=== PATIENT | female | born 1945 | race Caucasian/White ===

== ENCOUNTER 2024-04-06 10:56 | Outpatient (AMB) | payer MEDICARE, OTHER, SELFPAY ==
[2024-04-06 11:09] VITALS: BP 130/72; PULSE 55; O2SAT 99; BMI 25.8
--- NOTE | 2024-04-06 11:09 | A.OFFVIS_ITS ---
Vital Signs 04/06/24 11:09 Height 5 ft 2.5 in Weight 143 lb 8.335 oz BMI 25.8 BP 130/72 Blood Pressure Location Lt brachial Position Sitting Pulse 55 Pulse Source Pulse Oximeter Pulse Oximetry (%) 99 Oxygen Delivery Method Room Air Intake Visit Reasons: RA Intake Note: Patient presents for follow up on RA today, she is requesting Methotrexate refill. Allergies environmental allergies Allergy (Mild, Verified 04/06/24 11:19) Hives Penicillins Adverse Reaction (Unknown, Unverified 04/06/24 11:19) unknown HPI HPI RA: Details: She had cataract surgery with complication in right eye with inflammation remaining being treated with eye drops. No recent infection. Used to work as photographic laboratory technician. Wakes up with minimal stiffness. In the last couple of days she has been typing a lot. Denies new joint swelling or pain. She is walking 2-3 miles daily. She has intermittent left lateral hip pain. Stretches from [employer] hip strengthening program were 2 easy for patient. She does her own stretches at home. Review of Systems Const All systems reviewed & are unremarkable except as noted in HPI and below Physical Exam Vital Signs: Last Vital Signs Pulse 55 04/06/24 11:09 BP 130/72 04/06/24 11:09 Pulse Ox 99 04/06/24 11:09 Oxygen Delivery Method Room Air 04/06/24 11:09 BMI result Body Mass Index 25.8 Const Other: General: Comfortable CVS: RRR Respiratory: clear to auscultation bilaterally. Good respiratory effort Skin: No lesions seen MSK: Synovitis present right 2nd to 5th MCP and left 1st MCP. Tenderness palpated MCPs. No PIP tenderness or wrist tenderness. Good range of motion of upper extremity and lower extremity. Left trochanteric bursa tenderness found. Assessment & Plan Assessment & Plan (1) Rheumatoid arthritis: Comment: She has synovitis on exam MCPs bilateral due to recent increase activity with typing more than usual. I will treat current symptoms with a short course of prednisone. Patient will monitor swelling and call office if she has recurrence. I will then increase methotrexate to 17.5 mg once weekly Code(s): M06.9 - Rheumatoid arthritis, unspecified Category: Medical Qualifiers: Rheumatoid arthritis location: multiple sites Rheumatoid factor presence: unspecified presence Qualified Code(s): M06.9 - Rheumatoid arthritis, unspecified Plan: Labs for disease and drug monitoring ordered After lab results are back, I will need to send prescription for methotrexate 15 mg once weekly Continue leucovorin 15 mg the day after you take methotrexate Return to clinic in 3 months Immunizations reviewed. She is up-to-date with flu shot, COVID-19 booster, pneumonia vaccines and Shingrix. She will get RSV vaccine [facility]ing [facility] (2) Other care home (current) drug therapy: Code(s): Z79.899 - Other care home (current) drug therapy Category: Medical Plan: See above (3) Trochanteric bursitis, left hip: Comment: Intermittent. In the past she has had 6 months relief with cortisone injection, which was done about a year ago. She has been doing stretches on her own at home. She agreed to PT. Code(s): M70.62 - Trochanteric bursitis, left hip Category: Medical Plan: PT referral given to patient. She would like to go to PT local to her home She will call office if left hip pain persists for left trochanteric bursa cortisone injection Return to clinic 3 months Orders: Orders C Reactive Protein Today M06.9 - Rheumatoid arthritis, unspecified, Z79.899 - Other care home (current) drug therapy Aspartate Amino Transferase Today Z79.60 - [facility] (current) use of unspecified immunomodulators and immunosuppressants Complete Blood Count Auto Diff Today Z79.60 - [facility] (current) use of unspecified immunomodulators and immunosuppressants Hepatitis B,C Profile Today M06.9 - Rheumatoid arthritis, unspecified, Z79.899 - Other care home (current) drug therapy T Spot TB Today M06.9 - Rheumatoid arthritis, unspecified, Z79.899 - Other ad terminal makeup operator (current) drug therapy Rheumatoid Factor Today M06.9 - Rheumatoid arthritis, unspecified, Z79.899 - Other ad terminal makeup operator (current) drug therapy Erythrocyte Sedimentation Rate Today M06.9 - Rheumatoid arthritis, unspecified, Z79.899 - Other ad terminal makeup operator (current) drug therapy Alanine Aminotransferase Today Z79.60 - watermelon harvesting supervisor (current) use of unspecified immunomodulators and immunosuppressants Creatinine Today Z79.60 - [facility] (current) use of unspecified immunomodulators and immunosuppressants Cyclic Citrullinated Peptide Today M06.9 - Rheumatoid arthritis, unspecified, Z79.899 - Other ad terminal makeup operator (current) drug therapy PT Evaluation and Treatment Today Z79.899 - Other care home (current) drug therapy Medications: New prednisone Take 2 tablets daily 3 days and 1 tablet daily 3 days then stop 5 mg PO DIRECTED 9 tabs 0RF Coding Level of Care Code Est Pt Level 4 (42384) Complex EM visit Add On G2211 Diagnoses Rheumatoid arthritis involving multiple sites, unspecified whether rheumatoid factor present M06.9 Rheumatoid arthritis location: multiple sites Rheumatoid factor presence: unspecified presence Other care home (current) drug therapy Z79.899 Trochanteric bursitis, left hip M70.62
== END 2024-04-06 12:08 | disposition home or self-care (01) ==
PROVIDERS: PCP Internal Medicine; Visit Provider Internal Medicine Rheumatology
DX: M06.9 Rheumatoid arthritis, unspecified (principal); Z79.899 Other long term (current) drug therapy; M70.62 Trochanteric bursitis, left hip
CPT/HCPCS: 99214; G2211

== ENCOUNTER 2024-04-06 10:56 | Outpatient (REF) | payer MEDICARE, OTHER, SELFPAY ==
[2024-04-06 13:14] LABS: MANUAL DIFF FLAG NO
[2024-04-06 13:44] LABS: Basophils Percent Auto 0.8 % (0-2); Eosinophils Absolute Auto 0.1 X10*3/uL (0.0-0.4); Eosinophils Percent Auto 1.4 % (0-4); Hematocrit 38.3 % (37.0-47.0); Imm Gran Abs Auto 0.01 X10*3/uL (0.00-0.03); Imm Gran Pct Auto 0.2 % (0.0-0.4); Lymphocytes Absolute Auto 1.3 X10*3/uL (1.2-4.9); Lymphocytes Percent Auto 25.3 % (20-40); Mean Corpuscular HGB Conc 33.9 g/dl (31.0-35.0); Mean Corpuscular Hemoglobin 31.6 pg (27.0-33.0); Mean Platelet Volume 9.5 fL (9.4-12.3); Monocytes Absolute Auto 0.5 X10*3/uL (0.1-1.2); Monocytes Percent Auto 8.9 % (2-11); Neutrophils Absolute Auto 3.3 x10*3/uL (2.0-8.3); Neutrophils Percent Auto 63.4 % (45-73); Platelet Count 253 X10*3/uL (160-400); Red Blood Count 4.12 X10*6/uL (4.20-5.50); Red Cell Distribution Width 12.7 % (11.0-16.0); White Blood Count 5.2 X10*3/uL (4.8-10.8)
[2024-04-06 14:05] LABS: Rheumatoid Factor 77.6 IU/mL (<15.0)
[2024-04-06 14:12] LABS: Alanine Aminotransferase 17 U/L (0-31); Aspartate Amino Transferase 27 U/L (5-31); C Reactive Protein 0.11 mg/dL (< or = 0.50); Estimated Glomerular Filt Rate > 60
[2024-04-06 14:25] LABS: Erythrocyte Sedimentation Rate 13 MM/HR (0-20)
[2024-04-07 08:17] LABS: HBS Num1 2.13 mIU/mL (0-7.99); HBsAGNum1 0.36 S/CO (0.00-0.99); Hepatitis B Core Antibody Nonreactive (Nonreactive); Hepatitis B Surface Antigen Negative (Negative); ~Hepatitis B Surface Antibody NONREACTIVE (Nonreactive); ~Hepatitis C Antibody Nonreactive (Nonreactive)
[2024-04-09 05:44] LABS: TS Negative Control Passed; TS Panel A 0; TS Panel B 3; TS Positive Control Passed; TSpotTB Negative (Negative)
[2024-04-09 14:38] LABS: Cyclic Citrullinated Peptide >250 UNITS
== END 2024-04-06 10:57 | disposition home or self-care (01) ==
LOC: HO.LAB 10:56
PROVIDERS: PCP Internal Medicine; Visit Provider Internal Medicine Rheumatology
DX: M06.9 Rheumatoid arthritis, unspecified (principal); Z79.899 Other long term (current) drug therapy; Z79.60 Long term (current) use of unspecified immunomodulators and immunosuppressants; M70.62 Trochanteric bursitis, left hip
CPT/HCPCS: 36415; 82565; 84450; 84460; 85025; 85652; 86140; 86200; 86431; 86481; 86704; 86706; 86803; 87340; 99212

== ENCOUNTER 2024-04-27 08:47 | Outpatient (AMB) | payer MEDICARE, OTHER, SELFPAY ==
[2024-04-27 08:50] VITALS: BP 134/68; BMI 26.9
--- NOTE | 2024-04-27 08:50 | MHC.OFFVIS ---
Vital Signs 04/27/24 08:50 Height 5 ft 2.5 in Weight 149 lb 4.047 oz BMI 26.9 BP 134/68 Blood Pressure Location Rt brachial Position Sitting Intake Visit Reasons: trochanteric bursa cortisone injection Allergies environmental allergies Allergy (Mild, Verified 04/27/24 08:53) Hives Penicillins Adverse Reaction (Unknown, Verified 04/27/24 08:53) unknown HPI HPI trochanteric bursa cortisone injection: Details: She has constant pain left trochanteric bursa. Nine days ago she started experiencing lower back pain. She has been applying heat without benefit. She is also taking Tylenol without benefit. Review of Systems Const All systems reviewed & are unremarkable except as noted in HPI and below Physical Exam Vital Signs: Last Vital Signs BP 134/68 04/27/24 08:50 BMI result Body Mass Index 26.9 Const Other: General: Comfortable Skin: No lesions seen MSK: Left trochanteric bursa tenderness found. Good range of motion of hip. Tender lower back lateral to lumbar paraspinal muscles on both sides. She is able to flex lumbar spine but it is not full. Office Procedures AMB Joint Injection/Aspiration Joint Injection/Aspiration Details: Right trochanteric bursa Prep: site was prepped using aseptic technique Injected: 40 mg of, Kenalog, with 1 mL of and 1% plain lidocaine Procedure: The patient tolerated the procedure well. Postprocedure protocol was discussed with patient. Coding 41101 - Large joint Procedure code (CPT) selection complete Office Meds lidocaine (PF) 10 mg/mL (1 %) injection solution Performing Provider: Adria Kelly MD Performing Location: [facility] Administered by: Adria Kelly MD on 04/27/24 15:28 Dose Route Admin Location Dispensed Lot Number Expiration Date [facility] [employer] 10 mg Infiltration 2 mL [id number] [facility] Kenalog 40 mg/mL suspension for injection Performing Provider: Adria Kelly MD Performing Location: [facility] Administered by: Adria Kelly MD on 04/27/24 15:28 Dose Route Admin Location Dispensed Lot Number Expiration Date [facility] [employer] 40 mg intrabursal 1 mL AP 2 [id number] [employer] Assessment & Plan Assessment & Plan (1) Trochanteric bursitis, left hip: Comment: Constant pain. Code(s): M70.62 - Trochanteric bursitis, left hip Category: Medical Plan: Left trochanteric bursa cortisone injection given today (2) Low back pain: Comment: Due to myofascial strain. We discussed conservative management. Code(s): M54.50 - Low back pain, unspecified Category: Medical Qualifiers: Chronicity: acute Back pain laterality: bilateral Sciatica presence: without sciatica Qualified Code(s): M54.50 - Low back pain, unspecified Plan: Start ibuprofen 600 mg every 8 hours as needed. She can also take Tylenol 1000 mg with ibuprofen Start muscle relaxer cyclobenzaprine 5 mg q.h.s. Apply heat to back as needed Return to clinic in 3 months Orders: Orders AMB Joint Injection/Aspiration Today M70.62 - Trochanteric bursitis, left hip Medications: New Kenalog (triamcinolone acetonide) 40 mg intrabursal ONCE 1 mL 0RF NS M70.62 - Trochanteric bursitis, left hip cyclobenzaprine 5 mg PO BEDTIME PRN 30 tabs 0RF muscle spasm lidocaine (PF) 10 mg Infiltration ONCE 1 mL 0RF M70.62 - Trochanteric bursitis, left hip Coding Level of Care Code Est Pt Level 4 (47593) Complex EM visit Add On G2211 Diagnoses Trochanteric bursitis, left hip M70.62 Acute bilateral low back pain without sciatica M54.50 Chronicity: acute Back pain laterality: bilateral Sciatica presence: without sciatica CPT Codes Coding - 12371 Large joint: 41095 - Large joint ([id number])
== END 2024-04-27 09:18 | disposition home or self-care (01) ==
PROVIDERS: PCP Internal Medicine; Visit Provider Internal Medicine Rheumatology
DX: M70.62 Trochanteric bursitis, left hip (principal); M54.50 Low back pain, unspecified
CPT/HCPCS: 20610; 99214

== ENCOUNTER → 2024-04-27 08:47 | Outpatient (BNVA) | payer MEDICARE, OTHER, SELFPAY | PROVIDERS: PCP Internal Medicine; Visit Provider Internal Medicine Rheumatology | DX: M70.62 Trochanteric bursitis, left hip (principal); M54.50 Low back pain, unspecified | CPT/HCPCS: 20610; 99212; J2003; J3300 ==

== ENCOUNTER 2024-06-30 08:50 | Outpatient (REF) | payer MEDICARE, OTHER, SELFPAY ==
--- OUTSIDE RECORDS SUMMARY | 2024-06-30 11:06 | XMS_ITS | Encounter Summary ---
Author Organization [facility] Address [address] [place] [address] Phone Care Team Providers Care Road Packer Operator Name Role Phone Leticia Alvarenga MD Unavailable [phone] Sherita Box MD Unavailable [phone] Rehana Meza MD Primary Care Provider + Sommer David MD Primary Care Provi [email or web address] Encounter Details Date Type Department Care Team (Latest Contact Info) Description 02/24/2020 Transcribe Orders Virtual Department [address] [place] [phone] Mann Stanford MD [address] [place] [address] [phone] [email or web address] Pre-operative laboratory examination [...] 11:40 AM EST) Specimen Source NASOPHARYNGEAL SWAB (RUG SIZER) [facility] COVID-19 Comment [id number] [facility] COVID Testing Status Sent to [facility] Micro Lab [facility] Other 02/27/2020 11:4 0 AM EST 02/27/2020 2:55 PM EST Mann Stanford MD BODY FLUIDS AND SARAH WU ORDERABLES [facility] [address] [place] [address] documented in this encounter Visit Diagnoses Diagnosis Pre-operative laboratory examination- Primary Pre-procedural laboratory examination documented in this encounter Care Teams Road Packer Operator Relationship Specialty Start Date End Date Rehana Meza MD [address] [place] [phone] [email or web address] PCP - General Family Medicine 10/27/17 05/22/21 Sommer David MD [address] [place] [address] [phone] [email or web address] PCP - General Internal Medicine 05/23/21 Leticia Alvarenga MD [address] [place] [address] Historical LMR Provider 02/03/17 2 Sherita Box MD [address] [place] [phone] [email or web address] Historical LMR Provider 02/03/17 04/28/21 documented as of this encounter Additional Source Comments The information contained in this document represents components of the legal health record. It is not the complete legal health record.[facility]
[2024-06-30 18:17] LABS: MANUAL DIFF FLAG NO
[2024-06-30 18:25] LABS: Basophils Absolute Auto 0.1 X10*3/uL (0.0-0.2); Basophils Percent Auto 1.4 % (0-2); Eosinophils Absolute Auto 0.1 X10*3/uL (0.0-0.4); Eosinophils Percent Auto 2.2 % (0-4); Hematocrit 39.8 % (37.0-47.0); Hemoglobin 13.3 g/dl (12.0-16.0); Imm Gran Abs Auto 0.01 X10*3/uL (0.00-0.03); Imm Gran Pct Auto 0.2 % (0.0-0.4); Lymphocytes Absolute Auto 1.3 X10*3/uL (1.2-4.9); Lymphocytes Percent Auto 30.4 % (20-40); Mean Corpuscular HGB Conc 33.4 g/dl (31.0-35.0); Mean Corpuscular Hemoglobin 31.1 pg (27.0-33.0); Mean Corpuscular Volume 93.2 fL (80.0-98.0); Mean Platelet Volume 9.9 fL (9.4-12.3); Monocytes Absolute Auto 0.6 X10*3/uL (0.1-1.2); Neutrophils Absolute Auto 2.2 x10*3/uL (2.0-8.3); Neutrophils Percent Auto 51.8 % (45-73); Platelet Count 248 X10*3/uL (160-400); Red Blood Count 4.27 X10*6/uL (4.20-5.50); Red Cell Distribution Width 13.2 % (11.0-16.0); White Blood Count 4.2 X10*3/uL (4.8-10.8)
[2024-06-30 18:39] LABS: Alanine Aminotransferase 17 U/L (0-31); Aspartate Amino Transferase 30 U/L (5-31); C Reactive Protein 0.18 mg/dL (< or = 0.50); Estimated Glomerular Filt Rate > 60
[2024-06-30 19:08] LABS: Erythrocyte Sedimentation Rate 13 MM/HR (0-20)
== END 2024-06-30 08:51 | disposition home or self-care (01) ==
LOC: HO.HKASLDS 08:50
PROVIDERS: Visit Provider Internal Medicine Rheumatology
DX: M06.9 Rheumatoid arthritis, unspecified (principal); M70.62 Trochanteric bursitis, left hip; Z79.899 Other long term (current) drug therapy; Z79.60 Long term (current) use of unspecified immunomodulators and immunosuppressants
CPT/HCPCS: 36415; 82565; 84450; 84460; 85025; 85652; 86140; 99212

== ENCOUNTER 2024-06-30 08:50 | Outpatient (AMB) | payer MEDICARE, OTHER, SELFPAY ==
--- NOTE | 2024-06-30 08:52 | MHC.OFFVIS ---
Vital Signs 06/30/24 08:56 Height 5 ft 2.5 in Weight 145 lb 8.081 oz BMI 26.2 BP 110/70 Blood Pressure Location Lt brachial Position Sitting Pulse 68 Pulse Source Pulse Oximeter Pulse Oximetry (%) 100 Oxygen Delivery Method Room Air Intake Visit Reasons: Follow Up 3mo Intake Note: Patient presents for follow up on RA today, Allergies environmental allergies Allergy (Mild, Verified 06/30/24 08:52) Hives Penicillins Adverse Reaction (Unknown, Verified 06/30/24 08:52) unknown HPI HPI Follow Up 3mo: Details: Wakes up with toes that are hot, swollen and painful. She can't wait to walk on cold floor. New nodule on right second PIP. MS none. She did not find benefit on prednisone course. Review of Systems Const All systems reviewed & are unremarkable except as noted in HPI and below Physical Exam Vital Signs: Last Vital Signs Pulse 68 06/30/24 08:56 BP 110/70 06/30/24 08:56 Pulse Ox 100 06/30/24 08:56 Oxygen Delivery Method Room Air 06/30/24 08:56 BMI result Body Mass Index 26.2 Const Other: General: Comfortable CVS: RRR Respiratory: clear to auscultation bilaterally. Good respiratory effort Skin: No lesions seen MSK: No MCP, PIP tenderness or wrist tenderness or synovitis. Normal range of motion of upper extremity and lower extremity. Left trochanteric bursa tenderness found. Tender bilateral ankles, tender MTPs bilateral with synovitis present in bilateral MTPs. Tender right 4th and 5th toes. Nodule present radial side of right 3rd DIPJ and ulnar side of 2nd PIP. Assessment & Plan Assessment & Plan (1) Rheumatoid arthritis: Comment: Rheumatoid arthritis is not controlled on current regimen. She had improvement with last prednisone course in resolving synovitis in hands. She has developed new nodule right 2nd PIP, which I am concerned for development of rheumatoid nodule with synovitis of bilateral MTPs with patient noting that her toes are swollen in the morning. We discussed next steps in therapy. Code(s): M06.9 - Rheumatoid arthritis, unspecified Category: Medical Qualifiers: Rheumatoid arthritis location: multiple sites Rheumatoid factor presence: unspecified presence Qualified Code(s): M06.9 - Rheumatoid arthritis, unspecified Plan: Labs for disease and drug monitoring ordered Prednisone course prescribed Increase methotrexate 20 mg once weekly Continue leucovorin 15 mg the day after you take methotrexate. I will consider reducing leucovorin dose to 10 mg when RA is better controlled Requesting [facility] records x2 request Return to clinic in 3 months (2) Other long-term (current) drug therapy: Code(s): Z79.899 - Other long-term (current) drug therapy Category: Medical Plan: See above (3) Trochanteric bursitis, left hip: Comment: Improve pain with last cortisone injection Code(s): M70.62 - Trochanteric bursitis, left hip Category: Medical Plan: She recently started physical therapy Return to clinic 3 months Orders: Orders Aspartate Amino Transferase Today Z79.60 - [facility] (current) use of unspecified immunomodulators and immunosuppressants C Reactive Protein Today Z79.899 - Other long-term (current) drug therapy Erythrocyte Sedimentation Rate Today Z79.899 - Other assistant terminal manager (current) drug therapy Alanine Aminotransferase Today Z79.60 - extermination supervisor (current) use of unspecified immunomodulators and immunosuppressants Complete Blood Count Auto Diff Today Z79.60 - [facility] (current) use of unspecified immunomodulators and immunosuppressants Creatinine Today Z79.60 - extermination supervisor (current) use of unspecified immunomodulators and immunosuppressants Medications: Changed From prednisone Take 2 tablets daily 3 days and 1 tablet daily 3 days then stop 5 mg PO DIRECTED 9 tabs 0RF To prednisone Take 3 tablets daily 3 days, 2 tablets daily 3 days and 1 tablet daily 3 days then stop 5 mg PO DIRECTED 18 tabs 0RF From methotrexate sodium Increase dose. 17.5 mg (7 x 2.5 mg) PO QWEEK 84 tabs 0RF To methotrexate sodium Increase dose. 20 mg (8 x 2.5 mg) PO QWEEK 12 weeks 96 tabs 0RF Coding Level of Care Code Est Pt Level 4 (65047) Complex EM visit Add On G2211 Diagnoses Rheumatoid arthritis involving multiple sites, unspecified whether rheumatoid factor present M06.9 Rheumatoid arthritis location: multiple sites Rheumatoid factor presence: unspecified presence Other long-term (current) drug therapy Z79.899 Trochanteric bursitis, left hip M70.62
[2024-06-30 08:56] VITALS: BP 110/70; PULSE 68; O2SAT 100; BMI 26.2
--- OUTSIDE RECORDS SUMMARY | 2024-06-30 09:23 | XMS_ITS | Encounter Summary ---
Author Organization [facility] Address [address] [place] [address] Phone Care Team Providers Care Frozen Pie Maker Name Role Phone Leticia Alvarenga MD Unavailable [phone] Sherita Box MD Unavailable [phone] Rehana Meza MD Primary Care Provider + Sommer David MD Primary Care Provi [email or web address] Encounter Details Date Type Department Care Team (Latest Contact Info) Description 02/24/2020 Transcribe Orders Virtual Department [address] [place] [phone] Mann Stanford MD [address] [place] [address] [phone] [email or web address] Pre-operative laboratory examination (Primary Dx) Social History Tobacco Use Types Packs/Day Years Used Date Smoking Tobacco: Never Smokeless Tobacco: Never Alcohol Use Standard Drinks/Week Comments Yes 0 (1 standard drink = 0.6 oz pur e alcohol) Rare Sex and Gender Information Value Date Recorded Sex Assigned at Female 05/19/2018 10:00 PM EST Gender Identity Female 05/19/2018 10:00 PM EST Sexual Orientation Straight 05/19/2018 10 :00 PM EST documented as of this encounter Plan of Treatment Not on file documented as of this encounter Results * COVID-19 PCR Order (02/27/2020 11:40 AM EST) Specimen Source NASOPHARYNGEAL SWAB (PLANNED GIVING OFFICER) [facility] COVID-19 Comment [id number] [facility] COVID Testing Status Sent to [facility] Micro Lab [facility] Other 02/27/2020 11:4 0 AM EST 02/27/2020 2:55 PM EST Mann Stanford MD BODY FLUIDS AND SARAH WU ORDERABLES [facility] [address] [place] [address] documented in this encounter Visit Diagnoses Diagnosis Pre-operative laboratory examination- Primary Pre-procedural laboratory examination documented in this encounter Care Teams Frozen Pie Maker Relationship Specialty Start Date End Date Rehana Meza MD [address] [place] [phone] [email or web address] PCP - General Family Medicine 10/27/17 05/22/21 Sommer David MD [address] [place] [address] [phone] [email or web address] PCP - General Internal Medicine 05/23/21 Leticia Alvarenga MD [address] [place] [phone] Historical LMR Provider 02/03/17 2 Sherita Box MD [address] [place] [address] [email or web address] Historical LMR Provider 02/03/17 04/28/21 documented as of this encounter Additional Source Comments The information contained in this document represents components of the legal health record. It is not the complete legal health record.[facility]
== END 2024-06-30 10:00 | disposition home or self-care (01) ==
LOC: HO.RHES 08:50
PROVIDERS: Visit Provider Internal Medicine Rheumatology
DX: M06.9 Rheumatoid arthritis, unspecified (principal); Z79.899 Other long term (current) drug therapy; M70.62 Trochanteric bursitis, left hip
CPT/HCPCS: 99214; G2211

== ENCOUNTER 2024-09-29 09:07 | Outpatient (AMB) | payer MEDICARE, OTHER, SELFPAY ==
[2024-09-29 09:10] VITALS: BP 120/64; PULSE 58; O2SAT 99; BMI 25.8
--- NOTE | 2024-09-29 09:10 | MHC.OFFVIS ---
Vital Signs 09/29/24 09:10 Height 5 ft 2.5 in Weight 143 lb 6 oz BMI 25.8 BP 120/64 Blood Pressure Location Lt brachial Position Sitting Pulse 58 Pulse Source Pulse Oximeter Pulse Oximetry (%) 99 Oxygen Delivery Method Room Air Intake Visit Reasons: 3 Months Intake Note: Patient presents for follow up on RA today. Allergies environmental allergies Allergy (Mild, Verified 09/29/24 09:14) Hives Penicillins Adverse Reaction (Unknown, Verified 09/29/24 09:14) unknown HPI HPI 3 Months: Details: She is experiencing R CMC pain recently. Sometimes feet are swollen. Doing PT exercises for L trochanteric bursa pain with benefit. Physical Exam Vital Signs: Last Vital Signs Pulse 58 09/29/24 09:10 BP 120/64 09/29/24 09:10 Pulse Ox 99 09/29/24 09:10 Oxygen Delivery Method Room Air 09/29/24 09:10 BMI result Body Mass Index 25.8 Const Other: General: Comfortable CVS: RRR Respiratory: clear to auscultation bilaterally. Good respiratory effort Skin: No lesions seen MSK: No MCP, PIP tenderness or wrist tenderness or synovitis. Normal range of motion of upper extremity and lower extremity. Left trochanteric bursa tenderness found. Tender MTPs bilaterally with synovitis present. Nodule present radial side of right 3rd DIPJ and ulnar side of 2nd PIP. Assessment & Plan Assessment & Plan (1) Rheumatoid arthritis: Comment: Inflammatory arthritis is not controlled. She had improvement with prednisone courses x2 and increasing methotrexate dose. She has developed rheumatoid nodules on radial side of DIPs right hand. The characteristic of the nodules are not typical of [place] nodes associated with osteoarthritis. We discussed add on DMARD therapy with sulfasalazine to control inflammatory arthritis and cutaneous disease associated with rheumatoid arthritis. Discussed side effects, benefits and drug monitoring on sulfasalazine. Rheumatology history: Diagnosed [address] Dr. Alvarado. Seropositive, erosive and nodular. Sulfasalazine 2003 ineffective, hydroxychloroquine [id number] discontinued by patient due to concern for ocular toxicity. Methotrexate started in 2004. She developed rheumatoid nodules radial aspect of right 2nd and 3rd DIPJ. Code(s): M06.9 - Rheumatoid arthritis, unspecified Category: Medical Qualifiers: Rheumatoid arthritis location: multiple sites Rheumatoid factor presence: unspecified presence Qualified Code(s): M06.9 - Rheumatoid arthritis, unspecified Plan: Labs for disease and drug monitoring ordered Continue methotrexate 20 mg once weekly Continue leucovorin 15 mg the day after you take methotrexate. I will consider reducing leucovorin dose to 10 mg when RA is better controlled Of her lab results are back, we will send prescription for sulfasalazine 500 mg twice a day. She will then need labs 1 month after starting sulfasalazine: CBC, creatinine, AST, ALT Return to clinic in 3 months (2) Other intermediate (current) drug therapy: Code(s): Z79.899 - Other intermission coordinator (current) drug therapy Category: Medical Plan: See above (3) Trochanteric bursitis, left hip: Comment: Improve pain with last cortisone injection and PT Code(s): M70.62 - Trochanteric bursitis, left hip Category: Medical Plan: Continue physical therapy Return to clinic 3 months (4) Osteoarthritis of carpometacarpal joint of right thumb: Comment: Clinical diagnosis. Discussed diagnosis and management. Code(s): M18.11 - Unilateral primary osteoarthritis of first carpometacarpal joint, right hand Category: Medical Plan: CMC splint prescribed OT prescribed Apply diclofenac gel 1% to affected area every 4-6 hours prn pain Return to clinic in 3 months Orders: Orders Aspartate Amino Transferase Today M06.9 - Rheumatoid arthritis, unspecified, Z79.899 - Other intermission coordinator (current) drug therapy Creatinine Today M06.9 - Rheumatoid arthritis, unspecified, Z79.899 - Other intermediate (current) drug therapy C Reactive Protein Today M06.9 - Rheumatoid arthritis, unspecified, Z79.899 - Other intermission coordinator (current) drug therapy Complete Blood Count Man Dif Today M06.9 - Rheumatoid arthritis, unspecified, Z79.899 - Other intermediate (current) drug therapy Alanine Aminotransferase Today M06.9 - Rheumatoid arthritis, unspecified, Z79.899 - Other intermediate (current) drug therapy Erythrocyte Sedimentation Rate Today M06.9 - Rheumatoid arthritis, unspecified, Z79.899 - Other intermediate (current) drug therapy OT Evaluation and Treatment Today M18.11 - Unilateral primary osteoarthritis of first carpometacarpal joint, right hand Medications: New arm brace (Wrist Brace) Dx: osteoarthritis CMC Right custom CMC splint As directed 1 ea 0RF Refilled methotrexate sodium Increase dose. 20 mg (8 x 2.5 mg) PO QWEEK 96 tabs 0RF 12 weeks Coding Level of Care Code Est Pt Level 4 (52273) Complex EM visit Add On G2211 Diagnoses Rheumatoid arthritis involving multiple sites, unspecified whether rheumatoid factor present M06.9 Rheumatoid arthritis location: multiple sites Rheumatoid factor presence: unspecified presence Other intermediate (current) drug therapy Z79.899 Trochanteric bursitis, left hip M70.62 Osteoarthritis of carpometacarpal joint of right thumb M18.11
== END 2024-09-29 09:50 | disposition home or self-care (01) ==
LOC: HO.RHES 09:08
PROVIDERS: PCP Internal Medicine Rheumatology; Visit Provider Internal Medicine Rheumatology
DX: M06.9 Rheumatoid arthritis, unspecified (principal); Z79.899 Other long term (current) drug therapy; M70.62 Trochanteric bursitis, left hip; M18.11 Unilateral primary osteoarthritis of first carpometacarpal joint, right hand
CPT/HCPCS: 99214; G2211

== ENCOUNTER → 2024-09-29 09:07 | Outpatient (BNVA) | payer MEDICARE, OTHER, SELFPAY | PROVIDERS: PCP Internal Medicine Rheumatology; Visit Provider Internal Medicine Rheumatology | DX: M06.9 Rheumatoid arthritis, unspecified (principal); M70.62 Trochanteric bursitis, left hip; M18.11 Unilateral primary osteoarthritis of first carpometacarpal joint, right hand; Z79.899 Other long term (current) drug therapy | CPT/HCPCS: 99212 ==

== ENCOUNTER 2025-01-11 09:46 | Outpatient (AMB) | payer MEDICARE, OTHER, SELFPAY ==
[2025-01-11 09:56] VITALS: BP 98/60; PULSE 56; O2SAT 100; BMI 25.6
--- NOTE | 2025-01-11 09:56 | A.OFFVIS_ITS ---
Vital Signs 01/11/25 09:56 Height 5 ft 2.5 in Weight 141 lb 15.643 oz BMI 25.6 BP 98/60 Blood Pressure Location Lt brachial Position Sitting Pulse 56 Pulse Source Pulse Oximeter Pulse Oximetry (%) 100 Intake Visit Reasons: 3 Months Intake Note: Patient presents for follow up on RA today. Accompanied by: Self / Same As Patient Allergies environmental allergies Allergy (Mild, Verified 09/29/24 09:14) Hives Penicillins Adverse Reaction (Unknown, Verified 09/29/24 09:14) unknown HPI HPI 3 Months: Details: MS very little. She is having pain in R 2nd MCP and CMC. Wrist brace helps. Going to OT. No new nodules. No new infections. Physical Exam Vital Signs: Last Vital Signs Pulse 56 01/11/25 09:56 BP 98/60 01/11/25 09:56 Pulse Ox 100 01/11/25 09:56 BMI result Body Mass Index 25.6 Const Other: General: Comfortable CVS: RRR Respiratory: clear to auscultation bilaterally. Good respiratory effort Skin: No lesions seen MSK: Thickening right 2nd MCP. She has a nodule on right 2nd PIP and right 3rd DIPJ. Normal range of motion of upper extremity and lower extremity. No MTP pain. Assessment & Plan Assessment & Plan (1) Rheumatoid arthritis: Comment: Inflammatory arthritis is not controlled. Nodular. She has had hair loss on current dose of methotrexate (previously increased). We discussed add on DMARD therapy with sulfasalazine to control inflammatory arthritis and cutaneous disease associated with rheumatoid arthritis. Discussed side effects, benefits and drug monitoring on sulfasalazine. Inflammatory arthritis was previously treated with 2 courses of prednisone. Rheumatology history: Diagnosed 2003 Dr. Alvarado. Seropositive, erosive and nodular. Sulfasalazine 2003 ineffective, hydroxychloroquine [id number] discontinued by patient due to concern for ocular toxicity. Methotrexate started in 2004. She developed rheumatoid nodules radial aspect of right 2nd and 3rd DIPJ. Code(s): M06.9 - Rheumatoid arthritis, unspecified Category: Medical Qualifiers: Rheumatoid arthritis location: multiple sites Rheumatoid factor presence: unspecified presence Qualified Code(s): M06.9 - Rheumatoid arthritis, unspecified Plan: Labs for disease and drug monitoring ordered Continue methotrexate 20 mg once weekly Continue leucovorin 15 mg the day after you take methotrexate. I will consider reducing leucovorin dose to 10 mg when RA is better controlled Start sulfasalazine 500 mg twice a day. She will then need labs 1 month after starting sulfasalazine: CBC, creatinine, AST, ALT. She prefers labs to be done local to her home. Lab requisition given to patient. Defer prednisone course at this time unless symptoms get worse. Patient will call office. Return to clinic in 3 months (2) Other intermodal customer service (current) drug therapy: Code(s): Z79.899 - Other skilled nursing (current) drug therapy Category: Medical Plan: See above (3) Trochanteric bursitis, left hip: Comment: Improve pain with last cortisone injection and PT. She continues to work with physical therapist. Code(s): M70.62 - Trochanteric bursitis, left hip Category: Medical Plan: Continue physical therapy Return to clinic 3 months (4) Osteoarthritis of carpometacarpal joint of right thumb: Comment: Clinical diagnosis. Improved with bracing and OT. Code(s): M18.11 - Unilateral primary osteoarthritis of first carpometacarpal joint, right hand Category: Medical Plan: Continue wearing CMC splint Continue OT Apply diclofenac gel 1% to affected area every 4-6 hours prn pain Return to clinic in 3 months Orders: Orders Complete Blood Count Auto Diff Today Z79.899 - Other intermodal customer service (current) drug therapy Creatinine 1 Month Z79.899 - Other intermodal customer service (current) drug therapy Alanine Aminotransferase 1 Month Z79.899 - Other intermodal customer service (current) drug therapy Aspartate Amino Transferase 1 Month Z79.899 - Other intermodal customer service (current) drug therapy C Reactive Protein 1 Month Z79.899 - Other intermodal customer service (current) drug therapy Erythrocyte Sedimentation Rate 1 Month Z79.899 - Other skilled nursing (current) drug therapy Medications: New sulfasalazine 0.5 grams PO BID 60 tabs 0RF Coding Level of Care Code Est Pt Level 4 (58928) Complex EM visit Add On G2211 Diagnoses Rheumatoid arthritis involving multiple sites, unspecified whether rheumatoid factor present M06.9 Rheumatoid arthritis location: multiple sites Rheumatoid factor presence: unspecified presence Other intermodal customer service (current) drug therapy Z79.899 Trochanteric bursitis, left hip M70.62 Osteoarthritis of carpometacarpal joint of right thumb M18.11
--- OUTSIDE RECORDS SUMMARY | 2025-01-11 11:44 | XMS_ITS | Encounter Summary ---
Author Organization [facility] Address [address] [place] [address] Phone Care Team Providers Care Licensing Registration Examiner Name Role Phone Leticia Alvarenga MD Unavailable [phone] Sherita Box MD Unavailable [phone] Rehana Meza MD Primary Care Provider + Sommer David MD Primary Care Provider Fidelina Alonso MD Primary Care Provider [phone] Encounter Details Date Type Department Care Team (Latest Contact Info) Description 02/24/2020 Transcribe Orders Virtual Department [address] [place] [address] Mann Stanford MD [address] [place] [id number] [email or web address] Pre-operative laboratory examination (Primary Dx) Social History Tobacco Use Types Packs/Day Years Used Date Smoking Tobacco: Never Smokeless Tobacco: Never Alcohol Use Standard Drinks/Week Comments Yes 0 (1 standard drink = 0.6 oz pur e alcohol) Rare Comments Unknown Sex and Gender Information Value Date Recorded Sex Assigned at Female 05/19/2018 10:00 PM EST Legal Sex Female 10:07 PM EDT Gender Identity Female 05/19/2018 10:00 PM EST Sexual Orientation Straight 05/19/2018 10 :00 PM EST documented as of this encounter Plan of Treatment Upcoming Encounters Date Type Department Care Team (Late st Contact Info) Description 01/14/2025 3:00 PM EDT Office Visit [address] [address] Adria Kelly MD [address] [place] [address] Carola De Leon, OT [address] [place] [address] [email or web address] 01/28/2025 11:45 AM EDT Office Visit [address] [address] Adria Kelly MD [address] [place] [address] Carola De Leon, OT [address] [place] [address] [email or web address] 02/07/2025 10:15 AM EDT Office Visit [address] [address] Adria Kelly MD [address] [place] [address] Carola De Leon, OT [address] [place] [address] [email or web address] documented as of this encounter Results * COVID-19 PCR Order (02/27/2020 11:40 AM EST) Specimen Source NASOPHARYNGEAL SWAB (CLIENT CARE COORDINATOR) [facility] COVID-19 Comment [id number] [facility] COVID Testing Status Sent to [facility] Other 02/27/2020 11:4 0 AM EST 02/27/2020 2:55 PM EST us Mann Stanford MD BODY FLUIDS AND STOOLS ORDER JHON Final Result [facility] [address] [place] [address] documented in this encounter Visit Diagnoses Diagnosis Pre-operative laboratory examination- Primary Pre-procedural laboratory examination documented in this encounter Care Teams Licensing Registration Examiner Relationship Specialty Start Date End Date Rehana Meza MD [address] [place] [phone] [email or web address] PCP - General Family Medicine 10/27/17 05/22/21 Sommer David MD [address] [place], [place] [address] [address] PCP - General Internal Medicine 05/23/21 11/04/24 Fidelina Alonso MD [address] [place] [address] [email or web address] PCP - General Family Medicine 11/05/24 Leticia Alvarenga MD [address] [place] [address] Historical LMR Provider 02/03/17 2 Sherita Box MD [address] [place] [address] [email or web address] Historical LMR Provider 02/03/17 04/28/21 documented as of this encounter Additional Source Comments The information contained in this document represents components of the legal health record. It is not the complete legal health record.[facility]
--- OUTSIDE RECORDS SUMMARY | 2025-01-11 11:44 | XMS_ITS | Clinical Summary ---
Author Organization [facility] Address [address] [place] [address] Phone Care Team Providers Care Manager Grocery Name Role Phone Crystal Alonso MD Primary Care Provider [phone] Allergies Active Allergy Reactions Criticality Noted Date Comments Penicillins Hives 01/12/2018 Medications omega 1-nxj-vge-fish oil 1,000 mg (120 mg-180 mg) Cap Take 1 capsule by mouth 2 (two) times a day. Active calcium carbonate-vitam in D3 400-133.3 mg-unit Tab Take 1,000 mg by mouth. Active cholecalciferol (VITAMIN D3) 1,000 unit tablet Take 1,000 Units by mouth daily. Active cyanocobalamin (VIT B-12) 1000 MCG tablet Take 100 mcg by mouth daily. Active chlorpheniramin e (CHLOR-TRIMETON ) 4 mg tablet Take 4 mg by mouth every 6 (six) hours as needed for allergies. Active methotrexate 2.5 MG Oral tabletIndicatio ns:2.5 mg 6 weekly Take by mouth every 7 days. Indications: 2.5 mg 6 weekly Active leucovorin (WELLCOVORIN) 5 mg tabletIndicatio ns:3 per week Take 5 mg by mouth daily. Indications: 3 per week Active folic acid (FOLVITE) 1 MG tablet Take 1 mg by mouth daily. Active Active Problems Problem Noted Date Diagnosed Date Venous stasis dermatitis of both lower extremiti es 01/12/2018 Assessment & Plan (02/08/2019 10:25 AM EDT): As mentioned she has quite a bit of reflux in both great saphenous veins but not a lot in the way of symptoms we will watch this conservatively she is wearing compression stockings 20 to 30 mm knee-high's Assessment & Plan (08/04/2018 9:58 AM EDT): At this point she has significant reflux but a lack of symptoms we will continue conservative management I will see her in 6 months time Assessment & Plan (02/03/2018 2:37 PM EDT): As above she has significant reflux but not enough in the way of symptoms we will see her twice yearly in follow-up to reevaluate. Assessment & Plan (01/12/2018 11:11 AM EDT): As above we are ordering a reflux study I will see her thereafter in follow-up more than likely she will have right great saphenous vein disease. I will tailor more specific treatment plan thereafter. Chronic rheumatic arthritis 01/12/2018 Assessment & Plan (02/08/2019 10:25 AM EDT): Present but well controlled with respect to symptomatology Assessment & Plan (08/04/2018 9:58 AM EDT): Inactive at this time I encouraged her to exercise as much as possible Assessment & Plan (02/03/2018 2:37 PM EDT): Present but stable and not active at this time Assessment & Plan (01/12/2018 11:11 AM EDT): Significant but well controlled per her report Encounters Date Type Department Care Team Description 01/05/2025 11:15 AM EDT Office Visit [facility] [address] [place] [address] Adria Kelly MD Greenebaum, Sarah A, OT Primary osteoarthritis of first carpometacarpal joint of right hand (Primary Dx) 12/29/2024 9:45 AM EDT Office Visit [facility] [address] [place] [address] Adria Kelly MD Greenebaum, Sarah A, OT Primary osteoarthritis of first carpometacarpal joint of right hand (Primary Dx) 12/22/2024 9:45 AM EDT Office Visit [facility] [address] [place] [address] Adria Kelly MD Greenebaum, Sarah A, OT Primary osteoarthritis of first carpometacarpal joint of right hand (Primary Dx) 12/10/2024 10:15 AM EDT Office Visit [address] [address] Adria Kelly MD Greenebaum, Sarah A, OT Primary osteoarthritis of first carpometacarpal joint of right hand (Primary Dx) 12/03/2024 10:15 AM EDT Office Visit [address] [address] Adria Kelly MD Greenebaum, Sarah A, OT Primary osteoarthritis of first carpometacarpal joint of right hand (Primary Dx) 11/19/2024 10:15 AM EDT Office Visit [address] [address] Adria Kelly MD Greenebaum, Sarah A, OT Primary osteoarthritis of first carpometacarpal joint of right hand (Primary Dx) 11/11/2024 Transcribe Orders [facility] [address] [place] [address] [address], [address] [place] [address] Laura Dennis Dizziness and giddiness (Primary Dx) 11/05/2024 10:15 AM EDT Office Visit [address] [address] Adria Kelly MD Greenebaum, Sarah A, OT Primary osteoarthritis of first carpometacarpal joint of right hand (Primary Dx) 11/05/2024 Plan of Care Documentation [address] [address] 10/13/2024 Transcribe Orders [facility] [address] [place] [address] JayleenLiana ortega Clifford Encounter for rehabilitation (Primary Dx) from Last 3 Months Family History Medical History Relation Comments Cancer Father Relation Status Comments Father Mother Social History Tobacco Use Types Packs/Day Years Used Date Smoking Tobacco: Never Smokeless Tobacco: Never Alcohol Use Standard Drinks/Week Comments Not Currently 0 (1 standard drink = 0.6 oz pur e alcohol) Rare Education Answer Date Recorded Are you interested in more education? Not on valencia e 08/16/2022 Are you concerned about learning? Not on file 08/16/2022 No 08/16/2022 No 08/16/2022 Digital Access Answer Date Recorded No 09/16/2022 No 09/16/2022 Reliable internet access at home? Not on file 09/16/2022 Device with a working camera? Not on file Comments Unknown Sex and Gender Information Value Date Recorded Sex Assigned at Female 05/19/2018 10:00 PM EST Legal Sex Female 10:07 PM EDT Gender Identity Female 05/19/2018 10:00 PM EST Sexual Orientation Straight 05/19/2018 10 :00 PM EST Last Filed Vital Signs Vital Sign Reading Time Taken Comments Blood Pressure 160/58 01/11/2022 9:54 AM EDT Pulse 56 01/11/2022 9:54 AM EDT Temperature 36.6 C (97.9 F) 05/19/2018 9:58 PM EST Respiratory Rate 18 05/20/2018 1:42 AM EST Oxygen Saturation 99% 02/08/2019 10: 17 AM EDT Inhaled Oxygen Concentration - - Weight 58.9 kg (129 lb 12.8 oz) 01/11/2022 9:54 AM EDT Height 158.8 cm (5' 2.5 ) 01/11/2022 9:54 AM EDT Body Mass Index 23.36 01/11/2022 9:54 AM EDT Plan of Treatment Upcoming Encounters Date Type Department Care Team (Late st Contact Info) Description 01/14/2025 3:00 PM EDT Office Visit [facility] [address] [place] [place] [address] Adria Kelly MD [address] [place] [address] Carola De Leon, OT [address] [place] [address] [email or web address] 01/28/2025 11:45 AM EDT Office Visit [facility] [address] [place] [address] Adria Kelly MD [address] [place] [address] Carola De Leon, OT [address] [place] [address] [email or web address] 02/07/2025 10:15 AM EDT Office Visit [facility] [address] [place] [address] Adria Kelly MD [address] [place] [address] Carola De Leon, OT [address] [place] [address] [email or web address] Health Maintenance Due Date Last Done Comments DEPRESSION SCREENING 1957 HEPATITIS C SCREENING 12/25/1963 ZOSTER VACCINES (1 of 2) 1964 OSTEOPOROSIS SCREENING INITIAL (ONE-TIME) 2010 Adult Td,Tdap Booster 07/26/2013 07/27/2003 PNEUMOCOCCAL VACCINES (50+ years) (3 of 3 - PPSV23, PCV20 or PCV21) 04/05/2015 02/08/2015, 04/24/2009 LIPID PANEL 06/19/2020 06/20/2015 COVID-19 VACCINE (3 - Moderna risk series) 08/15/2020 07/18/2020, 06/20/2020 RSV VACCINE (1 - 1-dose 75+ series) 2020 INFLUENZA VACCINE (#1) 2024 , 02/19/2019, 02/02/2019, Additional history exists HEPATITIS A VACCINES Aged Out 07/07/2001, 08/08/19 01 No longer eligible based on patient's age to complete this topic SMOKING STATUS SCREENING (Once After 26 Yrs) Completed 01/11/2022 HIB VACCINES Aged Out No longer eligi ble based on patient's age to complete this topic MENINGOCOCCAL VACCINES (ACWY) Aged Out No longer eligible based on patient's age to complete this topic MENINGOCOCCAL VACCINES (B) Aged Out N o longer eligible based on patient's age to complete this topic Medical Devices Not on file Insurance MEDICARE ENHANCE SUPPLEMENT MEDICARE PART A & B [facility] MEDICARE ENHANCE SUPPLEMENT MEDICARE PART A & B MEDICARE ENHANCE SUPPLEMENT MEDICARE PART A & B MEDICARE ENHANCE SUPPLEMENT MEDICARE PART A & B [facility] MEDICARE ENHANCE SUPPLEMENT MEDICARE PART A & B MEDICARE ENHANCE SUPPLEMENT MEDICARE PART A & B MEDICARE ENHANCE SUPPLEMENT MEDICARE PART A & B MEDICARE ENHANCE SUPPLEMENT Member Subscriber Plan / Payer ( fective 2016-Present) Name:Cara Dougherty Relation to Subscriber:Self Name:ANGIE DOUGHERTYEN Payer ID:[id number] (NAIC) Group ID:Not on file Type:nGAP Address: [facility] [id number] [place] [id number] MEDICARE PART A & B [facility] MEDICARE ENHANCE SUPPLEMENT MEDICARE PART A & B Care Teams Manager Grocery Relationship Specialty Start Date End Date Crystal Alonso MD [address] [place], [place] [id number] [email or web address] PCP - General Family Medicine 11/05/24 Additional Source Comments The information contained in this document represents components of the legal health record. It is not the complete legal health record.[facility]
== END 2025-01-11 10:29 | disposition home or self-care (01) ==
LOC: HO.RHES 09:46
PROVIDERS: PCP Internal Medicine Rheumatology; Visit Provider Internal Medicine Rheumatology
DX: M06.9 Rheumatoid arthritis, unspecified (principal); Z79.899 Other long term (current) drug therapy; M70.62 Trochanteric bursitis, left hip; M18.11 Unilateral primary osteoarthritis of first carpometacarpal joint, right hand
CPT/HCPCS: 99214; G2211

== ENCOUNTER 2025-01-11 09:46 | Outpatient (REF) | payer MEDICARE, OTHER, SELFPAY ==
[2025-01-11 13:49] LABS: Baso%MD 1.2 %; Eos%MD 2.1 %; Hematocrit 38.9 % (37.0-47.0); Hemoglobin 13.0 g/dl (12.0-16.0); IG%MD 0.2 %; Lymph%MD 28.8 %; Mean Corpuscular HGB Conc 33.4 g/dl (31.0-35.0); Mean Corpuscular Hemoglobin 31.2 pg (27.0-33.0); Mean Corpuscular Volume 93.3 fL (80.0-98.0); Mono%MD 12.2 %; NRBC Abs Auto 0.000 X10*3/uL (0.0-0.012); NRBC Pct Auto 0.0 /100WBC (0.0-0.2); Neut%MD 55.5 %; Platelet Count 257 X10*3/uL (160-400); Red Blood Count 4.17 X10*6/uL (4.20-5.50); White Blood Count 4.8 X10*3/uL (4.8-10.8)
[2025-01-11 14:03] LABS: Alanine Aminotransferase 16 U/L (0-31); Aspartate Amino Transferase 25 U/L (5-31); Estimated Glomerular Filt Rate > 60
[2025-01-11 20:51] LABS: Basophils Percent Manual 1 % (0-2); Eosinophils Percent Manual 1 % (0-4); Lymphocytes Absolute Manual 1.7 X10*3/uL (1.2-4.9); Lymphocytes Percent Manual 36 % (20-40); Monocytes Absolute Manual 0.5 X10*3/uL (0.1-1.2); Monocytes Percent Manual 10 % (2-11); Neutrophils Percent Manual 52 % (45-73)
[2025-01-11 20:52] LABS: Acanthocytes 1+ (0-2) /OIF; Band Neutrophils Percent 0 % (3-5); Neutrophils Absolute Manual 2.5 X10*3/uL (2.0-8.3); RBC Morphology NOTED
== END 2025-01-11 09:47 | disposition home or self-care (01) ==
LOC: HO.HKASLDS 09:46
PROVIDERS: PCP Internal Medicine Rheumatology; Visit Provider Internal Medicine Rheumatology
DX: M06.09 Rheumatoid arthritis without rheumatoid factor, multiple sites (principal); M18.11 Unilateral primary osteoarthritis of first carpometacarpal joint, right hand; M70.62 Trochanteric bursitis, left hip; Z79.899 Other long term (current) drug therapy; Z51.81 Encounter for therapeutic drug level monitoring
CPT/HCPCS: 36415; 82565; 84450; 84460; 85007; 85027; 85652; 86140; 99212